=== PATIENT | female | born 1990 | race Caucasian/White ===

== ENCOUNTER 2016-12-29 18:40 | Inpatient (IN) | payer MEDICAID ==
[2016-12-29] MEDS ORDERED: Sodium Chloride 0.9% 10 ML Syringe FLUSH PRN (20:03)
--- NOTE | 2016-12-29 22:53 | PCM.LDHP ---
L&D History of Present Illness - General Date of Service: 12/29/16 Admit Problem/Dx: Admission Diagnosis/Problem Admission Diagnosis/Problem Source of Information: Patient History Limitations: Reports: No Limitations - History of Present Illness Introduction:: 26 year old here with rupture of membranes. - Related Data Allergies/Adverse Reactions: Allergies Allergy/AdvReac Type Severity Reaction Status Date / Time kiwi Allergy Airway Uncoded 12/29/16 20:28 Tightness Past Medical History HEENT History: Reports: Allergic Rhinitis Psychiatric History: Reports: Depression - Infectious Disease History Infectious Disease History: Reports: Hepatitis C Social & Family History - Family History Family Medical History: Noncontributory - Tobacco Use Smoking Status *Q: Current Every Day Smoker Years of Tobacco use: 8 Packs/Tins Daily: 0.5 - Caffeine Use Caffeine Use: Reports: Coffee, Soda Other Caffeine Use: 6 mountain dew per day, 1 coffee per day - Recreational Drug Use Recreational Drug Use: No H&P Review of Systems - Review of Systems: Review Of Systems: See Below General: Reports: No Symptoms HEENT: Reports: No Symptoms Pulmonary: Reports: No Symptoms Cardiovascular: Reports: No Symptoms Gastrointestinal: Reports: No Symptoms Genitourinary: Reports: No Symptoms Musculoskeletal: Reports: No Symptoms Skin: Reports: No Symptoms Psychiatric: Reports: No Symptoms Neurological: Reports: No Symptoms Hematologic/Lymphatic: Reports: No Symptoms Immunologic: Reports: No Symptoms L&D Exam - Exam Exam: See Below - Vital Signs Weight: 84.368 kg - OB Specific Contraction Intensity: Mild to Moderate Movement: Active Heart Tones: Present Presentation: Vertex - Alejo Score Alejo Score Cervix Position: Midposition Alejo Score Consistency: Medium Alejo Score Effacement: 31-50% Alejo Score Dilation: 3-4 cm Alejo Score 's Station: -2 Alejo Score Total: 6 - Exam General: Alert, Oriented HEENT: Conjunctiva Clear Neck: Supple Lungs: Clear to Auscultation Cardiovascular: Regular Rate, Regular Rhythm Abdomen: Soft Genitourinary: Normal external exam Back Exam: Normal Inspection, Full Range of Motion Extremities: Normal Inspection Skin: Warm, Dry, Intact Neurological: Cranial Nerves Intact, Reflexes Equal Bilateral Psychiatric: Alert, Normal Affect, Normal Mood - Patient Data Lab Results last 24 hrs: Laboratory Results - last 24 hr 12/29/16 12/29/16 Range/Units 20:37 20:37 WBC 20.47 H (3.98-10.04) K/mm3 RBC 4.63 (3.98-5.22) M/mm3 Hgb 12.8 (11.2-15.7) gm/L Hct 38.3 (34.1-44.9) % MCV 82.7 (79.4-94.8) fl MCH 27.6 (25.6-32.2) pg MCHC 33.4 (32.2-35.5) g/dl RDW Std Deviation 39.7 (36.4-46.3) fL Plt Count 390 H (182-369) K/mm3 MPV 9.5 (9.4-12.3) fl Blood Type O POSITIVE Gel Antibody Screen Negative Result Diagrams: 12/29/16 20:37 Problem List Initiated/Reviewed/Updated: Yes Orders Last 24hrs: Active Orders 24 hr Category Date Time Status Activity as Tolerated [RC] PFP Care 12/29/16 20:03 Active Communication Order [RC] ASDIRECTED Care 12/29/16 20:03 Active Heart Tones [RC] ASDIRECTED Care 12/29/16 20:04 Active Notify Provider [RC] PFP Care 12/29/16 20:03 Active Notify Provider [RC] PRN Care 12/29/16 20:03 Active Peripheral IV Care [RC] . DIRECTED Care 12/29/16 20:04 Active Vital Signs [RC] PER UNIT ROUTINE Care 12/29/16 20:03 Active Clear Liquid Diet [DIET] Diet 12/29/16 Breakfast Active Lactated Ringers [Ringers, Lactated] 1,000 ml Med 12/29/16 20:15 Active IV ASDIRECTED Sodium Chloride 0.9% [Saline Flush] Med 12/29/16 20:03 Active 10 ml FLUSH ASDIRECTED PRN Electronic Heart Tones Ext w TOCO [WOMSER] Oth 12/29/16 20:03 Ordered Routine Electronic Heart Tones Internal [WOMSER] Per Unit Oth 12/29/16 20:03 Ordered Routine Peripheral IV Insertion Adult [OM.PC] Routine Oth 12/29/16 20:03 Ordered Resuscitation Status Routine Resus Stat 12/29/16 20:03 Ordered Medication Orders Lactated Ringer's (Ringers, Lactated) 1,000 mls @ 100 mls/hr IV ASDIRECTED BARBIE Sodium Chloride (Saline Flush) 10 ml FLUSH ASDIRECTED PRN PRN Reason: Keep Vein Open Assessment/Plan Comment:: Term SROM. Admit. CBC. IVF. Type and screen Anticipate .
[2016-12-30] MEDS ORDERED: Oxytocin/Lactated Ringers 10 UNIT/1,000 ML BAG IV ONE (00:43)
[2016-12-30] MEDS ORDERED: Oxytocin/Lactated Ringers 10 UNIT/1,000 ML BAG IV SCH (00:45)
[2016-12-30] MEDS: Lactated Ringers 1,000 ML IV SCH ×4 (00:58→08:01)
[2016-12-30] MEDS ORDERED: fentaNYL 100 MCG/2 ML SDV EPIDUR PRN (03:20)
[2016-12-30] MEDS ORDERED: ePHEDrine 50 MG/ML SDV IVPUSH PRN ×2 (03:20→10:35)
[2016-12-30] MEDS ORDERED: diphenhydrAMINE 50 MG/ML SDV IVPUSH PRN ×3 (03:20→10:35)
[2016-12-30] MEDS ORDERED: Ondansetron 4 MG/2 ML SDV IVPUSH PRN ×2 (03:20→08:55)
[2016-12-30] MEDS ORDERED: Bupivacaine/fentaNYL/NS 100 ML Bag EPIDUR SCH (03:30)
--- NOTE | 2016-12-30 04:11 | PCM.PREANE ---
Preanesthetic Assessment - Procedure Proposed Procedure: Labor Epidural - Anesthesia/Transfusion/Family Hx Anesthesia History: Prior Anesthesia Without Reaction Family History of Anesthesia Reaction: No Transfusion History: No Prior Transfusion(s) - Review of Systems General: No Symptoms Pulmonary: Cough (smokers cough) Cardiovascular: No Symptoms Gastrointestinal: Other (GERD) Neurological: No Symptoms Other: Reports: None - Physical Assessment NPO Status Date: 12/30/16 NPO Status Time: 01:00 Height: 1.65 m Weight: 84.368 kg ASA Class: 2 Mental Status: Alert & Oriented x3 Airway Class: Mallampati = 2 Dentition: Reports: Normal Dentition Thyro-Mental Finger Breadths: 3 Mouth Opening Finger Breadths: 3 ROM/Head Extension: Full Lungs: Clear to auscultation, Normal respiratory effort Cardiovascular: Regular Rate, Regular Rhythm - Lab Values: Laboratory Last Values WBC 20.47 K/mm3 (3.98-10.04) H 12/29/16 20:37 RBC 4.63 M/mm3 (3.98-5.22) 12/29/16 20:37 Hgb 12.8 gm/L (11.2-15.7) 12/29/16 20:37 Hct 38.3 % (34.1-44.9) 12/29/16 20:37 MCV 82.7 fl (79.4-94.8) 12/29/16 20:37 MCH 27.6 pg (25.6-32.2) 12/29/16 20:37 MCHC 33.4 g/dl (32.2-35.5) 12/29/16 20:37 RDW Std Deviation 39.7 fL (36.4-46.3) 12/29/16 20:37 Plt Count 390 K/mm3 (182-369) H 12/29/16 20:37 MPV 9.5 fl (9.4-12.3) 12/29/16 20:37 Blood Type O POSITIVE 12/29/16 20:37 Gel Antibody Screen Negative 12/29/16 20:37 - Allergies Allergies/Adverse Reactions: Allergies Allergy/AdvReac Type Severity Reaction Status Date / Time kiwi Allergy Airway Uncoded 12/29/16 20:28 Tightness - Blood Blood Available: No Product(s) Available: None - Anesthesia Plan Pre-Op Medication Ordered: None - Acknowledgements Anesthesia Type Planned: Epidural Pt an Appropriate Candidate for the Planned Anesthesia: Yes Alternatives and Risks of Anesthesia Discussed w Pt/Guardian: Yes Pt/Guardian Understands and Agrees with Anesthesia Plan: Yes PreAnesthesia Questionnaire HEENT History: Reports: Allergic Rhinitis Psychiatric History: Reports: Depression - Infectious Disease History Infectious Disease History: Reports: Hepatitis C - SUBSTANCE USE Smoking Status *Q: Current Every Day Smoker (1ppd for 8years) Tobacco Use Within Last Twelve Months: Cigarettes Second Hand Smoke Exposure: No Recreational Drug Use History: No - CURRENT (IN HOUSE) MEDS Current Meds: Current Medications Diphenhydramine HCl (Benadryl) 25 mg IVPUSH Q6H PRN PRN Reason: Pruritis Ephedrine Sulfate (Ephedrine Sulfate) 5 mg IVPUSH ASDIRECTED PRN PRN Reason: Hypotension Fentanyl (Sublimaze) 100 mcg EPIDUR Q3H PRN PRN Reason: Pain Fentanyl/Bupivacaine HCl (Fentanyl/Bupivacaine/Ns 2 Mcg-0.125% 100 Ml) 100 ml EPIDUR ASDIRECTED [facility] Lactated Ringer's (Ringers, Lactated) 1,000 mls @ 100 mls/hr IV ASDIRECTED [facility] Last Admin: 12/30/16 03:07 Dose: 100 mls/hr Oxytocin/Lactated Ringer's (Pitocin In Lr 10 Units/1,000 Ml) 10 unit in 1,000 mls @ 12 mls/hr IV TITRATE BARBIE; 2 MUNITS/MIN PRN Reason: Protocol Last Admin: 12/30/16 00:59 Dose: 2 munits/min, 12 mls/hr Ondansetron HCl (Zofran) 4 mg IVPUSH ONETIME PRN PRN Reason: Nausea/Vomiting Sodium Chloride (Saline Flush) 10 ml FLUSH ASDIRECTED PRN PRN Reason: Keep Vein Open Discontinued Medications Oxytocin/Lactated Ringer's (Pitocin In Lr 10 Units/1,000 Ml) 10 unit in 1,000 mls @ 500 mls/hr IV ONETIME ONE PRN Reason: Protocol Stop: 12/30/16 02:42
[2016-12-30] MEDS ORDERED: Dextrose 5%-0.45% NaCl 1,000 ML ONE (07:37)
[2016-12-30] MEDS ORDERED: Bupivacaine 0.5% 30 ML SDV ONE (07:50)
[2016-12-30] MEDS ORDERED: Dextrose 5%-0.45% NaCl 1,000 ML IV SCH (08:00)
[2016-12-30] MEDS ORDERED: Metoclopramide 10 MG/2 ML SDV ONE (08:01)
[2016-12-30] MEDS ORDERED: Citric Acid/Sodium Citrate Solution 30 ML Cup ONE (08:01)
[2016-12-30] MEDS ORDERED: Citric Acid/Sodium Citrate Solution 30 ML Cup PO ONE (08:03)
[2016-12-30] MEDS ORDERED: Sodium Chloride 0.9% 10 ML Syringe FLUSH PRN (08:03)
[2016-12-30] MEDS ORDERED: Metoclopramide 10 MG/2 ML SDV IVPUSH ONE (08:03)
--- NOTE | 2016-12-30 08:07 | PCM.SN ---
- Free Text/Narrative Note: Patient with minimal contractions. Once pitocin initiated over night had some prolonged decelerations. Improved upon stopping pitocin but no contractions or cervical change Then restarted pitocin and deep decelerations to the 20s. Plan section.
[2016-12-30] MEDS ORDERED: ceFAZolin 1 GM Vial ONE (08:10)
[2016-12-30] MEDS ORDERED: Ondansetron 4 MG/2 ML SDV ONE (08:10)
[2016-12-30] MEDS ORDERED: Lidocaine 2% with EPINEPHrine 1:200,000 20 ML SDV ONE (08:10)
[2016-12-30] MEDS ORDERED: Sodium Bicarbonate 8.4% 50 MEQ/50 ML SDV ONE (08:10)
[2016-12-30] MEDS ORDERED: Oxytocin 10 Units/1 ML SDV ONE (08:10)
[2016-12-30] MEDS ORDERED: Morphine PF 10 MG/10 ML SDV ONE (08:10)
[2016-12-30] MEDS ORDERED: Lactated Ringers 1,000 ML IV SCH (08:15)
[2016-12-30] MEDS ORDERED: ePHEDrine/Normal Saline 25 MG/5 ML Syringe ONE (08:39)
[2016-12-30] MEDS ORDERED: Meperidine PF 50 MG/ML Syringe IVPUSH PRN (08:55)
[2016-12-30] MEDS ORDERED: Ketorolac 30 MG/ML SDV ONE (09:10)
--- NOTE | 2016-12-30 09:22 | PCM.OPNOTE ---
- General Post-Op/Procedure Note Date of Surgery/Procedure: 12/30/16 Operative Procedure(s): primary Findings: viable male, 8/9 APGARS, weight 6#8oz Pre Op Diagnosis: non reassuring heart tones Post-Op Diagnosis: Same Anesthesia Technique: Epidural Primary Surgeon: Annabel Beltre Prescription Clerk: Kadie Mitchell Fluid Replacement, Intraop: 1,200 Output, Urine Amount: 200 EBL in mLs: 800 Complications: None Condition: Good Free Text/Narrative:: The patient was taken to the operating room where epidural anesthesia was dosed to surgical levels without difficulty. The patient was prepped and draped in the usual sterile fashion in the dorsal supine position with a leftward tilt. A Pfannenstiel skin incision was made with the scalpel and carried through to the underlying layer of fascia. The fascia was incised in the midline and extended laterally using Ordoñez scissors. Ethan clamps were used to elevate the superior aspect of the fascial incision, which was elevated, and the underlying rectus muscles were dissected off bluntly and using Ordoñez scissors. Attention was then turned to the inferior aspect of the fascial incision, which in similar fashion was grasped with Ethan clamps, elevated, and the underlying rectus muscles were dissected off bluntly and using the ordoñez. The rectus muscles were dissected in the midline. The peritoneum was entered bluntly; this incision was extended superiorly and inferiorly with good visualization of the bladder. The bladder blade was inserted. The vesicouterine peritoneum was identified and entered sharply using Metzenbaum scissors. This incision was extended laterally and the bladder flap was created digitally. The bladder blade was reinserted. The lower uterine segment was incised in a transverse fashion using the scalpel and with digital traction. Clear fluid was noted. The was subsequently delivered by flexing the head to the incision. Body and shoulders followed without difficulty. The cord was clamped and cut. The infant was subsequently handed to the awaiting beta tester whose presence had been requested.. The placenta was delivered spontaneously intact with a three-vessel cord noted. The uterus was exteriorized and cleared of all clots and debris. The uterine incision was repaired in 2 non locking layers using 0 monocryl. Hemostasis was visualized. Hemostasis was visualized bilaterally. The uterus was returned to the abdomen. The uterine incision was reexamined and it was noted to be hemostatic. The pelvis was copiously irrigated. The fascia was closed with 1 PDS suture, and the skin was closed with 3-0 monocryl. Sponge, lap, and instrument counts were correct x2. The patient was stable at the completion of the procedure and was subsequently transferred to the recovery room in stable condition
--- NOTE | 2016-12-30 09:28 | PCM.POSTAN ---
POST ANESTHESIA ASSESSMENT - MENTAL STATUS Mental Status: alert, oriented - VITAL SIGNS Pulse Rate: 84 SaO2: 100 Resp Rate: 15 Blood Pressure: 104/65 Temperature: 36.0 C - RESPIRATORY Respiratory Status: respiratory rate WNL, airway patent, O2 saturation stable, supplemental oxygen - CARDIOVASCULAR CV Status: pulse rate WNL, blood pressure stable - GASTROINTESTINAL GI Status: no symptoms - PAIN Pain Score: 0 - POST OP HYDRATION Hydration Status: adequate & stable
[2016-12-30] MEDS ORDERED: fentaNYL 100 MCG/2 ML SDV ONE (09:51)
[2016-12-30] MEDS ORDERED: fentaNYL 100 MCG/2 ML SDV IVPUSH PRN (09:54)
[2016-12-30] MEDS ORDERED: Bupivacaine 0.25% 10 ML SDV ONE (10:28)
[2016-12-30] MEDS ORDERED: Docusate Sodium 100 MG Cap PO PRN (10:35)
[2016-12-30] MEDS ORDERED: Dextrose 5%-Lactated Ringers 1,000 ML IV SCH (10:35)
[2016-12-30] MEDS ORDERED: Lanolin 100% Cream 7 GM Tube TOP PRN (10:35)
[2016-12-30] MEDS ORDERED: Naloxone 0.4 MG/ML SDV IVPUSH PRN (10:35)
[2016-12-30] MEDS: Simethicone 80 MG Tab.Chew PO SCH ×4 (11:22→21:16)
[2016-12-30] MEDS: Acetaminophen/oxyCODONE 325-5 MG Tab PO PRN ×2 (11:22→18:18)
[2016-12-30] MEDS: Nicotine 21 MG/24 Hr Patch TRDERM SCH (13:03)
[2016-12-30] MEDS ORDERED: Ketorolac 30 MG/ML SDV IVPUSH SCH (14:00)
[2016-12-30] MEDS: Ketorolac 30 MG/ML SDV IVPUSH SCH ×2 (15:20→21:15)
[2016-12-30] MEDS: Dextrose 5%-0.45% NaCl 1,000 ML IV SCH (21:14)
[2016-12-31] MEDS: Dextrose 5%-0.45% NaCl 1,000 ML IV SCH (03:07)
[2016-12-31] MEDS: Ketorolac 30 MG/ML SDV IVPUSH SCH (03:09)
--- NOTE | 2016-12-31 07:59 | PCM.PNPP ---
- General Info Date of Service: 12/31/16 Functional Status: Reports: pain controlled - Review of Systems General: Reports: No Symptoms HEENT: Reports: no symptoms Pulmonary: Reports: no symptoms Cardiovascular: Reports: No Symptoms Gastrointestinal: Reports: No symptoms Genitourinary: Reports: no symptoms Musculoskeletal: Reports: no symptoms Skin: Reports: no symptoms Neurological: Reports: No Symptoms Psychiatric: Reports: no symptoms - General Info Date of Service: 12/31/16 - Patient Data Vital Signs - most recent: Last Vital Signs Temp 36.2 C 12/31/16 04:07 Pulse 82 12/31/16 04:07 Resp 16 12/31/16 06:55 BP 98/57 L 12/31/16 04:07 Pulse Ox 96 12/31/16 06:55 Weight - most recent: 84.368 kg I&O - last 24 hours: Intake & Output 12/30/16 12/31/16 12/31/16 22:59 06:59 14:59 Intake Total 1520 1100 Output Total 350 650 150 Balance 1170 450 -150 Lab Results - last 24 hrs: Laboratory Results - last 24 hr 12/31/16 Range/Units 05:50 WBC 16.59 H (3.98-10.04) K/mm3 RBC 3.44 L (3.98-5.22) M/mm3 Hgb 9.5 L (11.2-15.7) gm/L Hct 29.7 L (34.1-44.9) % MCV 86.3 (79.4-94.8) fl MCH 27.6 (25.6-32.2) pg MCHC 32.0 L (32.2-35.5) g/dl RDW Std Deviation 41.3 (36.4-46.3) fL Plt Count 310 (182-369) K/mm3 MPV 9.6 (9.4-12.3) fl Neut % (Auto) 72.5 H (34.0-71.1) % Lymph % (Auto) 16.9 L (19.3-51.7) % [place] % (Auto) 8.0 (4.7-12.5) % Eos % (Auto) 1.6 (0.7-5.8) Baso % (Auto) 0.1 (0.1-1.2) % Neut # (Auto) 12.01 H (1.56-6.13) K/mm3 Lymph # (Auto) 2.81 (1.18-3.74) K/mm3 Deuel # (Auto) 1.33 H (0.24-0.36) K/mm3 Eos # (Auto) 0.27 (0.04-0.36) K/mm3 Baso # (Auto) 0.02 (0.01-0.08) K/mm3 Manual Slide Review Normal smear Med Orders - Current: Current Medications Diphenhydramine HCl (Benadryl) 25 mg IVPUSH Q6H PRN PRN Reason: Itching or Nausea Docusate Sodium (Colace) 100 mg PO Q12H PRN PRN Reason: Constipation Emollient Ointment (Lansinoh Hpa) 0 gm TOP ASDIRECTED PRN PRN Reason: Sore Nipples Ephedrine Sulfate (Ephedrine Sulfate) 5 mg IVPUSH SEECOMMENT PRN PRN Reason: Other Fentanyl (Sublimaze) 100 mcg EPIDUR Q3H PRN PRN Reason: Pain Last Admin: 12/30/16 04:41 Dose: 100 mcg Fentanyl/Bupivacaine HCl (Fentanyl/Bupivacaine/Ns 2 Mcg-0.125% 100 Ml) 100 ml EPIDUR ASDIRECTED [facility] Last Admin: 12/30/16 04:42 Dose: 100 ml Dextrose/Sodium Chloride (Dextrose 5%-1/2 Ns) 1,000 mls @ 125 mls/hr IV ASDIRECTED [facility] Last Admin: 12/31/16 03:07 Dose: 125 mls/hr Ibuprofen (Motrin) 600 mg PO Q6H PRN PRN Reason: mild pain or fever Meperidine HCl (Demerol) 12.5 mg IVPUSH ONETIME PRN PRN Reason: Shivering Miscellaneous Information (Remove Patch) 1 ea TRDERM DAILY [facility] Naloxone HCl (Narcan) 0.1 mg IVPUSH SEECOMMENT PRN PRN Reason: Respiratory Depression Nicotine (Habitrol) 21 mg TRDERM DAILY [facility] Last Admin: 12/30/16 13:03 Dose: 21 mg Ondansetron HCl (Zofran) 4 mg IVPUSH ONETIME PRN PRN Reason: Nausea/Vomiting Oxycodone/Acetaminophen (Percocet 325-5 Mg) 2 tab PO Q6H PRN PRN Reason: Pain (moderate 4-6) Last Admin: 12/30/16 18:18 Dose: 2 tab Simethicone (Simethicone) 80 mg PO PCBED BARBIE Last Admin: 12/30/16 21:16 Dose: 80 mg Discontinued Medications Bupivacaine HCl (Marcaine 0.5%) Confirm Administered Dose 30 ml .ROUTE .STK-MED ONE Stop: 12/30/16 07:51 Last Admin: 12/30/16 08:38 Dose: 20 ml Cefazolin Sodium (Ancef) Confirm Administered Dose 2 gm .ROUTE .STK-MED ONE Stop: 12/30/16 08:11 Citric Acid/Sodium Citrate (Bicitra Solution) Confirm Administered Dose 30 ml .ROUTE .STK-MED ONE Stop: 12/30/16 08:02 Last Admin: 12/30/16 17:50 Dose: Not Given Citric Acid/Sodium Citrate (Bicitra Solution) 30 ml PO ONETIME ONE Stop: 12/30/16 08:04 Last Admin: 12/30/16 08:08 Dose: 30 ml Diphenhydramine HCl (Benadryl) 25 mg IVPUSH Q6H PRN PRN Reason: Pruritis Diphenhydramine HCl (Benadryl) 25 mg IVPUSH Q6H PRN PRN Reason: Pruritis Ephedrine Sulfate (Ephedrine Sulfate) 5 mg IVPUSH ASDIRECTED PRN PRN Reason: Hypotension Ephedrine Sulfate (Ephedrine In Ns) Confirm Administered Dose 25 mg .ROUTE .STK- MED ONE Stop: 12/30/16 08:40 Fentanyl (Sublimaze) 50 mcg IVPUSH Q5M PRN PRN Reason: Pain Stop: 12/30/16 10:10 Last Admin: 12/30/16 09:54 Dose: 50 mcg Fentanyl (Sublimaze) Confirm Administered Dose 100 mcg .ROUTE .STK-MED ONE Stop: 12/30/16 09:52 Last Admin: 12/30/16 15:18 Dose: Not Given Lactated Ringer's (Ringers, Lactated) 1,000 mls @ 100 mls/hr IV ASDIRECTED [facility]BIE Last Admin: 12/30/16 08:01 Dose: 100 mls/hr Oxytocin/Lactated Ringer's (Pitocin In Lr 10 Units/1,000 Ml) 10 unit in 1,000 mls @ 12 mls/hr IV TITRATE BARBIE; 2 MUNITS/MIN PRN Reason: Protocol Last Titration: 12/30/16 06:34 Dose: 2 munits/min, 12 mls/hr Oxytocin/Lactated Ringer's (Pitocin In Lr 10 Units/1,000 Ml) 10 unit in 1,000 mls @ 500 mls/hr IV ONETIME ONE PRN Reason: Protocol Stop: 12/30/16 02:42 Last Admin: 12/30/16 17:50 Dose: Not Given Dextrose/Sodium Chloride (Dextrose 5%-1/2 Ns) Confirm Administered Dose 1,000 mls @ as directed .ROUTE .STK-MED ONE Stop: 12/30/16 07:38 Last Admin: 12/30/16 17:51 Dose: Not Given Dextrose/Sodium Chloride (Dextrose 5%-1/2 Ns) 1,000 mls @ 150 mls/hr IV ASDIRECTED BARBIE Last Admin: 12/30/16 08:00 Dose: 999 mls/hr Lactated Ringer's (Ringers, Lactated) 1,000 mls @ 125 mls/hr IV ASDIRECTED BARBIE Dextrose/Lactated Ringer's (Dextrose 5%-Lactated Ringers) 1,000 mls @ 125 mls/ hr IV ASDIRECTED [facility] Stop: 12/30/16 18:34 Last Admin: 12/30/16 16:48 Dose: 125 mls/hr Ketorolac Tromethamine (Toradol) Confirm Administered Dose 30 mg .ROUTE .STK- MED ONE Stop: 12/30/16 09:11 Ketorolac Tromethamine (Toradol) 30 mg IVPUSH Q6H [facility] Stop: 12/31/16 02:01 Last Admin: 12/30/16 17:50 Dose: Not Given Ketorolac Tromethamine (Toradol) 30 mg IVPUSH Q6H [facility] Stop: 12/31/16 03:01 Last Admin: 12/31/16 03:09 Dose: 30 mg Lidocaine/Epinephrine (Xylocaine-Mpf 2%-Epi 1:200,000) Confirm Administered Dose 20 ml .ROUTE .STK-MED ONE Stop: 12/30/16 08:11 Metoclopramide HCl (Reglan) Confirm Administered Dose 10 mg .ROUTE .STK-MED ONE Stop: 12/30/16 08:02 Last Admin: 12/30/16 17:50 Dose: Not Given Metoclopramide HCl (Reglan) 10 mg IVPUSH ONETIME ONE Stop: 12/30/16 08:04 Last Admin: 12/30/16 08:10 Dose: 10 mg Morphine Sulfate (Duramorph Pf) Confirm Administered Dose 10 mg .ROUTE .STK-MED ONE Stop: 12/30/16 08:11 Ondansetron HCl (Zofran) 4 mg IVPUSH ONETIME PRN PRN Reason: Nausea/Vomiting Ondansetron HCl (Zofran) Confirm Administered Dose 4 mg .ROUTE .STK-MED ONE Stop: 12/30/16 08:11 Oxytocin (Pitocin) Confirm Administered Dose 10 unit .ROUTE .STK-MED ONE Stop: 12/30/16 08:11 Sodium Bicarbonate (Sodium Bicarbonate 8.4%) Confirm Administered Dose 50 meq .ROUTE .STK-MED ONE Stop: 12/30/16 08:11 Sodium Chloride (Saline Flush) 10 ml FLUSH ASDIRECTED PRN PRN Reason: Keep Vein Open Sodium Chloride (Saline Flush) 10 ml FLUSH ASDIRECTED PRN PRN Reason: Keep Vein Open - Interaction Infant Disposition, : at Bedside Support Person: Significant Other - Recovery Exam Fundal Tone: Firm Fundal Level: At Umbilicus Fundal Placement: Midline Lochia Amount: Scant Lochia Color: Rubra/Red Perineum Description: Intact, Minimal Bruising/Swelling Other Perinuem Description: 1 small clot passed Episiotomy/Laceration: None Bladder Status: Indwelling Catheter in Place Urinary Elimination: Incontinent - Exam General: alert, oriented HEENT: Pupils equal Neck: supple Lungs: Clear to auscultation, Normal respiratory effort Cardiovascular: Regular Rate, Regular Rhythm Abdomen: bowel sounds present, soft, no tenderness, no distension Extremities: no edema Skin: warm, dry, intact Wound/Incisions: healing well Neurological: no new focal deficit Psy/Mental Status: alert, normal affect, normal mood - Problem List Review Problem List Initiated/Reviewed/Updated: Yes - My Orders Last 24 Hours: My Active Orders 12/30/16 08:03 Communication Order [RC] ROUTINE Heart Tones [RC] PER UNIT ROUTINE 12/30/16 08:05 Peripheral IV Care [RC] . DIRECTED 12/30/16 10:35 Communication Order [RC] PER UNIT ROUTINE Communication Order [RC] PER UNIT ROUTINE Notify Provider Intake and Out [RC] ASDIRECTED Acetaminophen/oxyCODONE [Percocet 325-5 MG] 2 tab PO Q6H PRN Docusate Sodium [Colace] 100 mg PO Q12H PRN Lanolin [Lansinoh HPA] See Dose Instructions TOP ASDIRECTED PRN Naloxone [Narcan] 0.1 mg IVPUSH SEECOMMENT PRN Simethicone 80 mg PO PCBED diphenhydrAMINE [Benadryl] 25 mg IVPUSH Q6H PRN ePHEDrine [ePHEDrine Sulfate] 5 mg IVPUSH SEECOMMENT PRN Assess Lochia [WOMSER] Per Unit Routine Assess Uterine Involution [WOMSER] Per Unit Routine Medication Administration Instruction [OM.PC] Routine 12/30/16 12:45 Nicotine [Habitrol] 21 mg TRDERM DAILY 12/30/16 18:35 Dextrose 5%-0.45% NaCl [Dextrose 5%-1/2 NS] 1,000 ml IV ASDIRECTED 12/30/16 Lunch Regular Diet [DIET] 12/31/16 08:00 Ibuprofen [Motrin] 600 mg PO Q6H PRN 12/31/16 09:00 Remove Patch 1 ea TRDERM DAILY - Plan Plan:: POD1 Doing great. Routine care.
[2016-12-31] MEDS: Simethicone 80 MG Tab.Chew PO SCH ×4 (08:30→22:11)
[2016-12-31] MEDS: Acetaminophen/oxyCODONE 325-5 MG Tab PO PRN ×3 (08:30→22:11)
[2016-12-31] MEDS: Remove Patch*NICOTINE TRDERM SCH (10:53)
[2016-12-31] MEDS: Nicotine 21 MG/24 Hr Patch TRDERM SCH (10:53)
[2016-12-31] MEDS: Ibuprofen 600 MG Tab PO PRN ×2 (12:18→18:58)
[2016-12-31] MEDS ORDERED: Measles, Mumps & Rubella Vaccine 0.5 ML SDV SUBCUT ONE (17:10)
--- NOTE | 2016-12-31 17:55 | PCM48HPAN ---
Post Anesthesia Note - EVALUATION WITHIN 48HRS OF ANESTHETIC Vital Signs in Normal Range: Yes Patient Participated in Evaluation: Yes Respiratory Function Stable: Yes Airway Patent: Yes Cardiovascular Function Stable: Yes Hydration Status Stable: Yes Pain Control Satisfactory: Yes Nausea and Vomiting Control Satisfactory: Yes Mental Status Recovered: Yes
[2017-01-01] MEDS: Ibuprofen 600 MG Tab PO PRN ×2 (02:19→09:50)
[2017-01-01] MEDS: Acetaminophen/oxyCODONE 325-5 MG Tab PO PRN (05:47)
--- NOTE | 2017-01-01 07:23 | PCM.DCSUM1 ---
Discharge Summary - Hospital Course Brief History: Admitted in labor. for non reassuring monitoring. - Discharge Data Discharge Date: 01/01/17 Discharge Disposition: Home, Self-Care 01 Condition: Good - Patient Summary/Data Operative Procedure(s) Performed: primary - Patient Instructions Diet: Usual Diet as Tolerated Activity: No Strenuous Activities Activity, Other: pelvic rest Driving: Do Not Drive Showering/Bathing: May Shower Wound/Incision Care: Keep Operative Site/Wound Site Clean and Dry, Change Dressing Daily, Do NOT Change Dressing Notify Provider of: Fever, Increased Pain, Swelling and Redness, Drainage, Nausea and/or Vomiting - Discharge Plan Referrals: Annabel Beltre MD [Primary Care Provider] - (4 weeks) - Discharge Summary/Plan Comment DC Time >30 min.: No - General Info Date of Service: 01/01/17 Functional Status: Reports: pain controlled - Review of Systems General: Reports: No Symptoms HEENT: Reports: no symptoms Pulmonary: Reports: no symptoms Cardiovascular: Reports: No Symptoms Gastrointestinal: Reports: No symptoms Genitourinary: Reports: no symptoms Musculoskeletal: Reports: no symptoms Skin: Reports: no symptoms Neurological: Reports: No Symptoms Psychiatric: Reports: no symptoms - Patient Data Vitals - Most Recent: Last Vital Signs Temp 36.6 C 01/01/17 04:24 Pulse 71 01/01/17 04:24 Resp 17 01/01/17 04:24 BP 106/68 01/01/17 04:24 Pulse Ox 99 01/01/17 04:24 Weight - Most Recent: 84.368 kg I&O - Last 24 hours: Intake & Output 12/31/16 01/01/17 01/01/17 22:59 06:59 14:59 Intake Total 1080 Balance 1080 Med Orders - Current: Current Medications Diphenhydramine HCl (Benadryl) 25 mg IVPUSH Q6H PRN PRN Reason: Itching or Nausea Docusate Sodium (Colace) 100 mg PO Q12H PRN PRN Reason: Constipation Last Admin: 12/31/16 22:11 Dose: 100 mg Emollient Ointment (Lansinoh Hpa) 0 gm TOP ASDIRECTED PRN PRN Reason: Sore Nipples Ephedrine Sulfate (Ephedrine Sulfate) 5 mg IVPUSH SEECOMMENT PRN PRN Reason: Other Fentanyl (Sublimaze) 100 mcg EPIDUR Q3H PRN PRN Reason: Pain Last Admin: 12/30/16 04:41 Dose: 100 mcg Fentanyl/Bupivacaine HCl (Fentanyl/Bupivacaine/Ns 2 Mcg-0.125% 100 Ml) 100 ml EPIDUR ASDIRECTED [facility] Last Admin: 12/30/16 04:42 Dose: 100 ml Dextrose/Sodium Chloride (Dextrose 5%-1/2 Ns) 1,000 mls @ 125 mls/hr IV ASDIRECTED [facility] Last Admin: 12/31/16 03:07 Dose: 125 mls/hr Ibuprofen (Motrin) 600 mg PO Q6H PRN PRN Reason: mild pain or fever Last Admin: 01/01/17 02:19 Dose: 600 mg Meperidine HCl (Demerol) 12.5 mg IVPUSH ONETIME PRN PRN Reason: Shivering Miscellaneous Information (Remove Patch) 1 ea TRDERM DAILY [facility] Last Admin: 12/31/16 10:53 Dose: 1 ea Naloxone HCl (Narcan) 0.1 mg IVPUSH SEECOMMENT PRN PRN Reason: Respiratory Depression Nicotine (Habitrol) 21 mg TRDERM DAILY [facility] Last Admin: 12/31/16 10:53 Dose: 21 mg Ondansetron HCl (Zofran) 4 mg IVPUSH ONETIME PRN PRN Reason: Nausea/Vomiting Oxycodone/Acetaminophen (Percocet 325-5 Mg) 2 tab PO Q6H PRN PRN Reason: Pain (moderate 4-6) Last Admin: 01/01/17 05:47 Dose: 2 tab Simethicone (Simethicone) 80 mg PO PCBED [facility] Last Admin: 12/31/16 22:11 Dose: 80 mg Discontinued Medications Bupivacaine HCl (Marcaine 0.5%) Confirm Administered Dose 30 ml .ROUTE .STK-MED ONE Stop: 12/30/16 07:51 Last Admin: 12/30/16 08:38 Dose: 20 ml Cefazolin Sodium (Ancef) Confirm Administered Dose 2 gm .ROUTE .STK-MED ONE Stop: 12/30/16 08:11 Citric Acid/Sodium Citrate (Bicitra Solution) Confirm Administered Dose 30 ml .ROUTE .STK-MED ONE Stop: 12/30/16 08:02 Last Admin: 12/30/16 17:50 Dose: Not Given Citric Acid/Sodium Citrate (Bicitra Solution) 30 ml PO ONETIME ONE Stop: 12/30/16 08:04 Last Admin: 12/30/16 08:08 Dose: 30 ml Diphenhydramine HCl (Benadryl) 25 mg IVPUSH Q6H PRN PRN Reason: Pruritis Diphenhydramine HCl (Benadryl) 25 mg IVPUSH Q6H PRN PRN Reason: Pruritis Ephedrine Sulfate (Ephedrine Sulfate) 5 mg IVPUSH ASDIRECTED PRN PRN Reason: Hypotension Ephedrine Sulfate (Ephedrine In Ns) Confirm Administered Dose 25 mg .ROUTE .STK- MED ONE Stop: 12/30/16 08:40 Fentanyl (Sublimaze) 50 mcg IVPUSH Q5M PRN PRN Reason: Pain Stop: 12/30/16 10:10 Last Admin: 12/30/16 09:54 Dose: 50 mcg Fentanyl (Sublimaze) Confirm Administered Dose 100 mcg .ROUTE .STK-MED ONE Stop: 12/30/16 09:52 Last Admin: 12/30/16 15:18 Dose: Not Given Lactated Ringer's (Ringers, Lactated) 1,000 mls @ 100 mls/hr IV ASDIRECTED [facility] Last Admin: 12/30/16 08:01 Dose: 100 mls/hr Oxytocin/Lactated Ringer's (Pitocin In Lr 10 Units/1,000 Ml) 10 unit in 1,000 mls @ 12 mls/hr IV TITRATE BARBIE; 2 MUNITS/MIN PRN Reason: Protocol Last Titration: 12/30/16 06:34 Dose: 2 munits/min, 12 mls/hr Oxytocin/Lactated Ringer's (Pitocin In Lr 10 Units/1,000 Ml) 10 unit in 1,000 mls @ 500 mls/hr IV ONETIME ONE PRN Reason: Protocol Stop: 12/30/16 02:42 Last Admin: 12/30/16 17:50 Dose: Not Given Dextrose/Sodium Chloride (Dextrose 5%-1/2 Ns) Confirm Administered Dose 1,000 mls @ as directed .ROUTE .STK-MED ONE Stop: 12/30/16 07:38 Last Admin: 12/30/16 17:51 Dose: Not Given Dextrose/Sodium Chloride (Dextrose 5%-1/2 Ns) 1,000 mls @ 150 mls/hr IV ASDIRECTED [facility] Last Admin: 12/30/16 08:00 Dose: 999 mls/hr Lactated Ringer's (Ringers, Lactated) 1,000 mls @ 125 mls/hr IV ASDIRECTED [facility] Dextrose/Lactated Ringer's (Dextrose 5%-Lactated Ringers) 1,000 mls @ 125 mls/ hr IV ASDIRECTED [facility] Stop: 12/30/16 18:34 Last Admin: 12/30/16 16:48 Dose: 125 mls/hr Ketorolac Tromethamine (Toradol) Confirm Administered Dose 30 mg .ROUTE .STK- MED ONE Stop: 12/30/16 09:11 Ketorolac Tromethamine (Toradol) 30 mg IVPUSH Q6H [facility] Stop: 12/31/16 02:01 Last Admin: 12/30/16 17:50 Dose: Not Given Ketorolac Tromethamine (Toradol) 30 mg IVPUSH Q6H [facility] Stop: 12/31/16 03:01 Last Admin: 12/31/16 03:09 Dose: 30 mg Lidocaine/Epinephrine (Xylocaine-Mpf 2%-Epi 1:200,000) Confirm Administered Dose 20 ml .ROUTE .STK-MED ONE Stop: 12/30/16 08:11 Measles/Mumps/Rubella Vaccine Live (M-M-R Ii Vaccine) 0.5 ml SUBCUT .ONCE ONE Stop: 12/31/16 17:11 Last Admin: 12/31/16 17:20 Dose: 0.5 ml Metoclopramide HCl (Reglan) Confirm Administered Dose 10 mg .ROUTE .STK-MED ONE Stop: 12/30/16 08:02 Last Admin: 12/30/16 17:50 Dose: Not Given Metoclopramide HCl (Reglan) 10 mg IVPUSH ONETIME ONE Stop: 12/30/16 08:04 Last Admin: 12/30/16 08:10 Dose: 10 mg Morphine Sulfate (Duramorph Pf) Confirm Administered Dose 10 mg .ROUTE .STK-MED ONE Stop: 12/30/16 08:11 Ondansetron HCl (Zofran) 4 mg IVPUSH ONETIME PRN PRN Reason: Nausea/Vomiting Ondansetron HCl (Zofran) Confirm Administered Dose 4 mg .ROUTE .STK-MED ONE Stop: 12/30/16 08:11 Oxytocin (Pitocin) Confirm Administered Dose 10 unit .ROUTE .STK-MED ONE Stop: 12/30/16 08:11 Sodium Bicarbonate (Sodium Bicarbonate 8.4%) Confirm Administered Dose 50 meq .ROUTE .STK-MED ONE Stop: 12/30/16 08:11 Sodium Chloride (Saline Flush) 10 ml FLUSH ASDIRECTED PRN PRN Reason: Keep Vein Open Sodium Chloride (Saline Flush) 10 ml FLUSH ASDIRECTED PRN PRN Reason: Keep Vein Open - Exam General: Reports: alert, oriented HEENT: Reports: Pupils equal, Pupils reactive, EOMI, Mucous membr. moist/pink Neck: Reports: supple Lungs: Reports: Clear to auscultation, Normal respiratory effort Cardiovascular: Reports: Regular Rate, Regular Rhythm Abdomen: Reports: bowel sounds present, soft, no tenderness, no distension (Female) Exam: Normal External Exam, Normal Speculum Exam, Normal Bimanual Exam Back Exam: Reports: Normal Inspection, Full Range of Motion Extremities: Reports: no edema, normal pulses Skin: Reports: warm, dry, intact Wound/Incisions: Reports: healing well Neurological: Reports: no new focal deficit Psy/Mental Status: Reports: alert, normal affect, normal mood *Q Meaningful Use (DIS) - VTE *Q VTE Criteria *Q: - Stroke *Q Stroke Criteria *Q: - AMI *Q AMI Criteria *Q:
[2017-01-01] MEDS: Simethicone 80 MG Tab.Chew PO SCH (09:51)
[2017-01-01] MEDS: Nicotine 21 MG/24 Hr Patch TRDERM SCH (09:55)
[2017-01-01] MEDS: Remove Patch*NICOTINE TRDERM SCH (09:56)
[2017-01-01] MEDS ORDERED: Acetaminophen/oxyCODONE 325-5 MG Tab PO ONE (10:11)
[2017-01-01 10:24] VITALS: BP 107/65
== END 2017-01-01 10:28 | disposition home or self-care (01) | DRG 766 ==
LOC: JD.OB 18:40 → JD.OBCHECK 18:40 → JD.OB 20:20 → OBSVTOIN 12-30 08:42
PROVIDERS: ADMIT Obstetrics & Gynecology; ATTEND Obstetrics & Gynecology
PROC: 10D00Z1 Extraction of Products of Conception, Low, Open Approach (ICD-10-PCS; principal; 2016-12-30)
PROC: 00HU33Z Insertion of Infusion Device into Spinal Canal, Percutaneous Approach (ICD-10-PCS; 2016-12-30)
PROC: 3E0R3CZ (ICD-10-PCS; 2016-12-30)
PROC: 3E0234Z Introduction of Serum, Toxoid and Vaccine into Muscle, Percutaneous Approach (ICD-10-PCS; 2016-12-31)
DX: O99.334 Smoking (tobacco) complicating childbirth (principal); F17.210 Nicotine dependence, cigarettes, uncomplicated; Z3A.38 38 weeks gestation of pregnancy; Z37.0 Single live birth; Z23 Encounter for immunization
CPT/HCPCS: 01967; 01968; 36415; 85025; 85027; 86850; 86900; 86901; 90707; 94762; A9270-GY; J0690; J1885; J2270; J2405; J2590; J2765; J3010; J7042; J7050; J7120

== ENCOUNTER 2018-03-22 19:44 | Emergency (ER) | payer MEDICAID ==
[2018-03-22 20:42] VITALS: BP 127/81
[2018-03-22] MEDS ORDERED: Lidocaine 1% 10 ML MDV ONE (23:24)
--- NOTE | 2018-03-22 23:39 | EDM.PDOC ---
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 [No Known Home Meds] 03/22/18 [History] Past Medical History HEENT History: Reports: Allergic Rhinitis Musculoskeletal History: Reports: Other (See Below) Other Musculoskeletal History: left knee surgery three times Psychiatric History: Reports: Anxiety - Infectious Disease History Infectious Disease History: Reports: Hepatitis C Social & Family History - Family History Family Medical History: Noncontributory - Tobacco Use Smoking Status *Q: Current Every Day Smoker Years of Tobacco use: 9 Packs/Tins Daily: 0.5 - Caffeine Use Caffeine Use: Reports: Coffee, Soda Other Caffeine Use: 6 mountain dew per day, 1 coffee per day - Recreational Drug Use Recreational Drug Use: No ED ROS GENERAL - Review of Systems Review Of Systems: ROS reveals no pertinent complaints other than HPI. ED EXAM, SKIN/RASH Exam Limited By: No Limitations General Appearance: Alert, WD/WN, No Apparent Distress Ears: Normal External Exam, Normal Canal, Hearing Grossly Normal, Normal TMs Nose: Normal Inspection, Normal Mucosa, No Blood Throat/Mouth: Normal Inspection, Normal Lips, Normal Teeth, Normal Gums, Normal Oropharynx, Normal Voice, No Airway Compromise Head: Atraumatic, Normocephalic Neck: Normal Inspection, Supple, Non-Tender, Full Range of Motion Respiratory/Chest: No Respiratory Distress, Lungs Clear, Normal Breath Sounds, No Accessory Muscle Use, Chest Non-Tender Cardiovascular: Normal Peripheral Pulses, Regular Rate, Rhythm, No Edema, No Gallop, No JVD, No Murmur, No Rub GI/Abdominal: Normal Bowel Sounds, Soft, Non-Tender, No Organomegaly, No Distention, No Abnormal Bruit, No Mass (Female) Exam: Normal External Exam, Normal Speculum Exam, Normal Bimanual Exam Rectal (Female) Exam: Normal Exam, Normal Rectal Tone Back Exam: Normal Inspection, Full Range of Motion, NT Extremities: Normal Inspection, Normal Range of Motion, Non-Tender, No Pedal Edema, Normal Capillary Refill Neurological: Alert, Oriented, CN II-XII Intact, Normal Cognition, Normal Gait, Normal Reflexes, No Motor/Sensory Deficits Psychiatric: Normal Affect, Normal Mood Lymphatic: No Adenopathy Course - Vital Signs Last Recorded V/S: Last Vital Signs Temp 37.4 C 03/22/18 20:40 Pulse 106 H 03/22/18 20:40 Resp 20 03/22/18 20:40 BP 127/81 03/22/18 20:40 Pulse Ox 96 03/22/18 20:40 - Orders/Labs/Meds Orders: Active Orders 24 hr Category Date Time Status Elbow 2V Lt [CR] Stat Exams 03/22/18 21:59 Taken Meds: Medications Discontinued Medications Generic Name Dose Route Start Last Admin Trade Name Freq PRN Reason Stop Dose Admin Lidocaine HCl Confirm 03/22/18 23:24 Xylocaine 1% Administered 03/22/18 23:25 Dose 10 ml .ROUTE .STK-MED ONE Departure - Discharge Information Referrals: Rhianna Pollard NP [Primary Care Provider] - Forms: ED Department Discharge - My Orders Last 24 Hours: My Active Orders 03/22/18 21:59 Elbow 2V Lt [CR] Stat - Assessment/Plan Last 24 Hours: My Active Orders 03/22/18 21:59 Elbow 2V Lt [CR] Stat
[2018-03-22] MEDS ORDERED: Lidocaine 1% 10 ML MDV INJECT ONE (23:41)
--- NOTE | 2018-03-22 23:44 | EDM.PDOC ---
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 [No Known Home Meds] 03/22/18 [History] Past Medical History HEENT History: Reports: Allergic Rhinitis Musculoskeletal History: Reports: Other (See Below) Other Musculoskeletal History: left knee surgery three times Psychiatric History: Reports: Anxiety - Infectious Disease History Infectious Disease History: Reports: Hepatitis C Social & Family History - Family History Family Medical History: Noncontributory - Tobacco Use Smoking Status *Q: Current Every Day Smoker Years of Tobacco use: 9 Packs/Tins Daily: 0.5 - Caffeine Use Caffeine Use: Reports: Coffee, Soda Other Caffeine Use: 6 mountain dew per day, 1 coffee per day - Recreational Drug Use Recreational Drug Use: No Review of Systems - Review of Systems Review Of Systems: ROS reveals no pertinent complaints other than HPI. ED EXAM, GENERAL - Physical Exam Exam: See Below Course - Vital Signs Last Recorded V/S: Last Vital Signs Temp 37.4 C 03/22/18 20:40 Pulse 106 H 03/22/18 20:40 Resp 20 03/22/18 20:40 BP 127/81 03/22/18 20:40 Pulse Ox 96 03/22/18 20:40 - Orders/Labs/Meds Orders: Active Orders 24 hr Category Date Time Status Elbow 2V Lt [CR] Stat Exams 03/22/18 21:59 Taken Meds: Medications Discontinued Medications Generic Name Dose Route Start Last Admin Trade Name Freq PRN Reason Stop Dose Admin Lidocaine HCl Confirm 03/22/18 23:24 Xylocaine 1% Administered 03/22/18 23:25 Dose 10 ml .ROUTE .STK-MED ONE Departure - Departure Time of Disposition: 23:40 Disposition: Home, Self-Care 01 Clinical Impression: Laceration of left upper extremity Qualifiers: Encounter type: initial encounter Qualified Code(s): S41.112A - Laceration without foreign body of left upper arm, initial encounter - Discharge Information *PRESCRIPTION DRUG MONITORING PROGRAM REVIEWED*: Not Applicable *COPY OF PRESCRIPTION DRUG MONITORING REPORT IN PATIENT MARANDA: Not Applicable Instructions: Laceration Care, Adult Referrals: Rhianna Pollard NP [Primary Care Provider] - Forms: ED Department Discharge Additional Instructions: May remove dressing and bathe tomorrow, as discussed. Cover with large bandaid. Kayleen should be removed in 7-10 days - that can be done in the ED. Call or return if signs of infection appear - increasing redness, pus drainage, increasing pain, or fever. - My Orders Last 24 Hours: My Active Orders 03/22/18 21:59 Elbow 2V Lt [CR] Stat - Assessment/Plan Last 24 Hours: My Active Orders 03/22/18 21:59 Elbow 2V Lt [CR] Stat
--- NOTE | 2018-03-26 12:34 | CR ---
Left elbow: Two views of the left elbow were obtained. Comparison: No previous study. Joint spaces are preserved. No fracture or other bony abnormality is seen. Impression: 1. No abnormality is appreciated on two-view left elbow study. Diagnostic code #1
--- NOTE | 2018-03-26 13:57 | ER ---
REASON FOR ADMISSION: Laceration left elbow. HISTORY OF PRESENT ILLNESS: This 27-year-old woman is brought in by her father after she apparently tripped on a carpet and fell striking her left elbow on the floor, sustaining a laceration and some pain. Her last tetanus shot was 5 years ago. She has no numbness or weakness distally. REVIEW OF SYSTEMS: Pertinent positives and negatives as listed in the HPI. CURRENT MEDICATIONS: None. ALLERGIES: Kiwi fruit. PHYSICAL EXAMINATION: VITAL SIGNS: See EMR. EXTREMITIES: Left arm, she has some slight swelling on the lateral aspect of her left elbow area. Passive range of motion is normal. She has an L-shaped laceration measuring approximately 6 cm in length. It is just over the lateral condyle. Distally, she has no numbness on sensory examination. All of her motor strength distally is normal including wrist flexion, extension, abduction and adduction of fingers, opposition. Examination of the wound, there is no exposed underlying tendon or joint or bone. DIAGNOSTIC DATA: X-ray of her left elbow was negative for any fracture or dislocation. FURTHER EMERGENCY ROOM COURSE: The wound was cleansed with Chloraseptic soap and water. The area was painted with Betadine and local anesthesia with approximately 12 mL of 1% xylocaine was achieved. The skin edges were approximated with 6 karina. Satisfactory hemostasis was noted. Antibiotic ointment and an occlusive sterile dressing were applied. She was instructed that she may remove the dressing tomorrow and may bathe and shower, but to keep the area clean and dry, and to keep it covered with a large Band-Aid if possible. Symptoms and signs of infection were explained to her. If any questions or concerns crop up, she should give us a call. She will return to have the karina removed in 7 to 10 days time. All questions were answered. MMODAL /[id number]
== END 2018-03-22 23:43 | disposition home or self-care (01) ==
LOC: JD.ED 19:44
DX: S41.112A Laceration without foreign body of left upper arm, initial encounter (principal); F17.210 Nicotine dependence, cigarettes, uncomplicated; F41.9 Anxiety disorder, unspecified; Z91.018 Allergy to other foods; W01.198A Fall on same level from slipping, tripping and stumbling with subsequent striking against other object, initial encounter
CPT/HCPCS: 12002; 73070-26-LT; 73070-LT; 99283-25

== ENCOUNTER 2019-11-04 05:36 | Inpatient (IN) | payer MEDICAID ==
[~2019-11-04 05:36] MED LIST: Citric Acid/Sodium Citrate Solution 30 ML Cup PO ONE; Lactated Ringers 1,000 ML IV SCH; Metoclopramide 10 MG/2 ML SDV IVPUSH ONE; Oxytocin/Lactated Ringers 10 UNIT/1,000 ML BAG IV SCH; Sodium Chloride 0.9% 10 ML Syringe FLUSH PRN
[2019-11-04] MEDS: Bupivacaine 0.5% 30 ML SDV ONE ×2 (06:30→08:18)
[2019-11-04] MEDS ORDERED: ceFAZolin 2 GM in Premix Bag 1 BAG IV ONE (07:00)
[2019-11-04] MEDS ORDERED: Citric Acid/Sodium Citrate Solution 30 ML Cup ONE (07:12)
[2019-11-04] MEDS ORDERED: Metoclopramide 10 MG/2 ML SDV ONE (07:12)
--- NOTE | 2019-11-04 07:36 | PCM.PREANE ---
Preanesthetic Assessment - Anesthesia/Transfusion/Family Hx Anesthesia History: Prior Anesthesia Without Reaction Transfusion History: No Prior Transfusion(s) - Review of Systems General: No Symptoms Pulmonary: No Symptoms Cardiovascular: No Symptoms Gastrointestinal: No Symptoms Neurological: No Symptoms Other: Reports: None - Physical Assessment NPO Status Date: 11/03/19 NPO Status Time: 21:00 Vital Signs: Preoperative vitals 98/72, 87, 16 rr, 98%, T98 F Height: 1.65 m Weight: 92.533 kg ASA Class: 2 Dentition: Reports: Normal Dentition (permanent retainer lower) Thyro-Mental Finger Breadths: 3 Mouth Opening Finger Breadths: 3 ROM/Head Extension: Full Lungs: Clear to Auscultation, Normal Respiratory Effort Cardiovascular: Regular Rate, Regular Rhythm - Lab Values: Laboratory Last Values WBC 13.49 K/mm3 (3.98-10.04) H 11/04/19 06:00 RBC 4.46 M/mm3 (3.98-5.22) 11/04/19 06:00 Hgb 12.4 gm/dl (11.2-15.7) D 11/04/19 06:00 Hct 37.6 % (34.1-44.9) 11/04/19 06:00 MCV 84.3 fl (79.4-94.8) 11/04/19 06:00 MCH 27.8 pg (25.6-32.2) 11/04/19 06:00 MCHC 33.0 g/dl (32.2-35.5) 11/04/19 06:00 RDW Std Deviation 39.2 fL (36.4-46.3) 11/04/19 06:00 Plt Count 277 K/mm3 (182-369) 11/04/19 06:00 MPV 10.1 fl (9.4-12.3) 11/04/19 06:00 Neut % (Auto) 76.2 % (34.0-71.1) H 11/04/19 06:00 Lymph % (Auto) 13.5 % (19.3-51.7) L 11/04/19 06:00 Imperial % (Auto) 7.4 % (4.7-12.5) 11/04/19 06:00 Eos % (Auto) 1.5 (0.7-5.8) 11/04/19 06:00 Baso % (Auto) 0.1 % (0.1-1.2) 11/04/19 06:00 Neut # (Auto) 10.27 K/mm3 (1.56-6.13) H 11/04/19 06:00 Lymph # (Auto) 1.82 K/mm3 (1.18-3.74) 11/04/19 06:00 Imperial # (Auto) 1.00 K/mm3 (0.24-0.36) H 11/04/19 06:00 Eos # (Auto) 0.20 K/mm3 (0.04-0.36) 11/04/19 06:00 Baso # (Auto) 0.02 K/mm3 (0.01-0.08) 11/04/19 06:00 Manual Slide Review Normal smear 11/04/19 06:00 Urine Opiates Screen Negative (GANKNW=289) 11/04/19 06:00 Ur Buprenorphine Scrn Negative (CUTOFF=10) 11/04/19 06:00 Ur Oxycodone Screen Negative ([id number]=592) 11/04/19 06:00 Urine Methadone Screen Negative (GCXCOU=797) 11/04/19 06:00 Ur Propoxyphene Screen Negative (RCPGZA=178) 11/04/19 06:00 Ur Barbiturates Screen Negative (WTWNLJ=808) 11/04/19 06:00 Ur Tricyclics Screen Negative (NTYBFF=913) 11/04/19 06:00 Ur Phencyclidine Scrn Negative (CUTOFF=25) 11/04/19 06:00 Ur Amphetamine Screen Negative (ZDHBLJ=622) 11/04/19 06:00 U Methamphetamines Scrn Negative (FPRIKZ=974) 11/04/19 06:00 U Benzodiazepines Scrn Negative (FLLHYX=156) 11/04/19 06:00 U Cocaine Metab Screen Negative (HFXQYL=925) 11/04/19 06:00 U Marijuana (THC) Screen Presumptive positive (CUTOFF=50) H 11/04/19 06:00 - Allergies Allergies/Adverse Reactions: Allergies Allergy/AdvReac Type Severity Reaction Status Date / Time kiwi Allergy Airway Uncoded 12/29/16 20:28 Tightness - Acknowledgements Anesthesia Type Planned: Spinal Pt an Appropriate Candidate for the Planned Anesthesia: Yes Alternatives and Risks of Anesthesia Discussed w Pt/Guardian: Yes Pt/Guardian Understands and Agrees with Anesthesia Plan: Yes PreAnesthesia Questionnaire HEENT History: Reports: Allergic Rhinitis Respiratory History: Reports: Other (See Below) Other Respiratory History: coughing 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 light in color and healing. pinpoint round puncture to hand. - Infectious Disease History Infectious Disease History: Reports: Hepatitis C, Other (See Below) Other Infectious Disease History: HX of MRSA. [id number] - SUBSTANCE USE Smoking Status *Q: Current Every Day Smoker Tobacco Use Within Last Twelve Months: Vaping, Other (See Below) Recreational Drug Use History: Yes Recreational Drug Type: Reports: Marijuana/Hashish, Other (see below) - HOME MEDS Home Medications: Home Meds Vits #93/Iron Fum/FA [ Formula Tablet] 1 tab PO DAILY 11/04/19 [History] - CURRENT (IN HOUSE) MEDS Current Meds: Current Medications Lactated Ringer's (Ringers, Lactated) 1,000 mls @ 125 mls/hr IV ASDIRECTED [facility] Oxytocin/Lactated Ringer's (Pitocin In Lr 10 Units/1,000 Ml) 10 unit in 1,000 mls @ 100 mls/hr IV ASDIRECTED [facility]; Protocol Sodium Chloride (Saline Flush) 10 ml FLUSH ASDIRECTED PRN PRN Reason: Keep Vein Open Discontinued Medications Bupivacaine HCl (Marcaine 0.5%) Confirm Administered Dose 30 ml .ROUTE .STK-MED ONE Stop: 11/04/19 06:23 Last Admin: 11/04/19 06:30 Dose: 20 ml Citric Acid/Sodium Citrate (Bicitra Solution) 30 ml PO ONETIME ONE Stop: 11/04/19 01:55 Citric Acid/Sodium Citrate (Bicitra Solution) Confirm Administered Dose 30 ml .ROUTE .STK-MED ONE Stop: 11/04/19 07:13 Cefazolin Sodium/Dextrose 2 gm (/ Premix) 50 mls @ 100 mls/hr IV ONETIME ONE Stop: 11/04/19 07:29 Metoclopramide HCl (Reglan) 10 mg IVPUSH ONETIME ONE Stop: 11/04/19 01:55 Metoclopramide HCl (Reglan) Confirm Administered Dose 10 mg .ROUTE .[facility]-MED ONE Stop: 11/04/19 07:13
[2019-11-04] MEDS ORDERED: Morphine PF 1 MG/ML Amp ONE (07:45)
[2019-11-04] MEDS ORDERED: ceFAZolin 1 GM Vial ONE (07:45)
[2019-11-04] MEDS ORDERED: Oxytocin 10 Units/1 ML SDV ONE (07:45)
[2019-11-04] MEDS ORDERED: fentaNYL 100 MCG/2 ML SDV IVPUSH PRN (08:31)
[2019-11-04] MEDS ORDERED: diphenhydrAMINE 50 MG/ML SDV IVPUSH PRN ×2 (08:31→10:16)
[2019-11-04] MEDS ORDERED: Ondansetron 4 MG/2 ML SDV IVPUSH PRN (08:31)
[2019-11-04] MEDS ORDERED: Lactated Ringers 1,000 ML ONE (08:50)
[2019-11-04] MEDS ORDERED: Ketorolac 30 MG/ML SDV ONE (08:50)
--- NOTE | 2019-11-04 09:03 | PCM.OPNOTE ---
- General Post-Op/Procedure Note Date of Surgery/Procedure: 11/04/19 Operative Procedure(s): repeat Pre Op Diagnosis: prior Post-Op Diagnosis: Same Primary Surgeon: Annabel Beltre Mold Capper Helper: Lucy Cooper Output, Urine Amount: 150 EBL in mLs: 600 Complications: None Condition: Good Free Text/Narrative:: The patient was taken to the operating room where spinal anesthesia was dosed to surgical levels without difficulty. The patient was prepped and draped in the usual sterile fashion in the dorsal supine position with a leftward tilt. A Pfannenstiel skin incision was made with the scalpel and carried through to the underlying layer of fascia. The fascia was incised in the midline and extended laterally using Ordoñez scissors. Ethan clamps were used to elevate the superior aspect of the fascial incision, which was elevated, and the underlying rectus muscles were dissected off bluntly and using Ordoñez scissors. Attention was then turned to the inferior aspect of the fascial incision, which in similar fashion was grasped with Ethan clamps, elevated, and the underlying rectus muscles were dissected off bluntly and using the ordoñez. The rectus muscles were dissected in the midline. The peritoneum was entered bluntly; this incision was extended superiorly and inferiorly with good visualization of the bladder. The bladder blade was inserted. The vesicouterine peritoneum was identified and entered sharply using Metzenbaum scissors. This incision was extended laterally and the bladder flap was created digitally. The bladder blade was reinserted. The lower uterine segment was incised in a transverse fashion using the scalpel and with digital traction. Clear fluid was noted. The was subsequently delivered by flexing the head to the incision. Body and shoulders followed without difficulty. The cord was clamped and cut. The was subsequently handed to the awaiting feather mixer whose presence had been requested.. The placenta was delivered spontaneously intact with a three-vessel cord noted. The uterus was exteriorized and cleared of all clots and debris. The uterine incision was repaired in 2 layers using 0 monocryl. Hemostasis was visualized. Hemostasis was visualized bilaterally. The uterus was returned to the abdomen. The uterine incision was reexamined and it was noted to be hemostatic. The pelvis was copiously irrigated. The fascia was closed with 1 PDS suture, and the skin was closed with 3-0 monocryl. Sponge, lap, and instrument counts were correct x2. The patient was stable at the completion of the procedure and was subsequently transferred to the recovery room in stable condition.
--- NOTE | 2019-11-04 09:09 | PCM.POSTAN ---
POST ANESTHESIA ASSESSMENT - MENTAL STATUS Mental Status: Alert, Oriented - VITAL SIGNS Vital Signs: Last Vital Signs Temp 98.2 F 11/04/19 08:52 Pulse 68 11/04/19 08:52 Resp 17 11/04/19 08:52 BP 106/65 11/04/19 08:52 Pulse Ox 98 11/04/19 08:52 - RESPIRATORY Respiratory Status: Respiratory Rate WNL, Airway Patent, O2 Saturation Stable - CARDIOVASCULAR CV Status: Pulse Rate WNL, Blood Pressure Stable - GASTROINTESTINAL GI Status: No Symptoms - PAIN Pain Score: 0 (post SAB) - POST OP HYDRATION Hydration Status: Adequate & Stable
[2019-11-04] MEDS ORDERED: Ketorolac 30 MG/ML SDV IVPUSH SCH (10:16)
[2019-11-04] MEDS ORDERED: ePHEDrine 50 MG/ML SDV IVPUSH PRN (10:16)
[2019-11-04] MEDS ORDERED: Naloxone 0.4 MG/ML SDV IVPUSH PRN (10:16)
[2019-11-04] MEDS ORDERED: Dextrose 5%-Lactated Ringers 1,000 ML IV SCH (10:16)
[2019-11-04] MEDS: Ketorolac 30 MG/ML SDV IVPUSH SCH ×2 (15:36→20:42)
[2019-11-04] MEDS: Docusate Sodium 100 MG Cap PO PRN (20:46)
[2019-11-04] MEDS: Acetaminophen/oxyCODONE 325-5 MG Tab PO PRN (20:46)
[2019-11-05] MEDS: Ketorolac 30 MG/ML SDV IVPUSH SCH (03:44)
[2019-11-05] MEDS: Acetaminophen/oxyCODONE 325-5 MG Tab PO PRN ×4 (07:21→19:48)
[2019-11-05] MEDS: Docusate Sodium 100 MG Cap PO PRN (07:21)
--- NOTE | 2019-11-05 07:45 | PCM.PNPP ---
- General Info Date of Service: 11/05/19 Functional Status: Reports: Pain Controlled - Review of Systems General: Reports: No Symptoms HEENT: Reports: No Symptoms Pulmonary: Reports: No Symptoms Cardiovascular: Reports: No Symptoms Gastrointestinal: Reports: No Symptoms Genitourinary: Reports: No Symptoms Musculoskeletal: Reports: No Symptoms Skin: Reports: No Symptoms Neurological: Reports: No Symptoms Psychiatric: Reports: No Symptoms - Patient Data Vital Signs - Most Recent: Last Vital Signs Temp 36.7 C 11/05/19 00:00 Pulse 65 11/05/19 00:00 Resp 13 11/05/19 06:00 BP 94/66 11/05/19 00:00 Pulse Ox 100 11/05/19 06:00 Weight - Most Recent: 92.533 kg I&O - Last 24 Hours: Intake & Output 11/04/19 11/05/19 11/05/19 22:59 06:59 14:59 Intake Total 2090 Output Total 575 669 Balance 1515 -669 Lab Results - Last 24 Hours: Laboratory Results - last 24 hr 11/04/19 11/04/19 11/05/19 Range/Units 06:00 06:00 05:35 WBC 12.95 H (3.98-10.04) K/mm3 RBC 4.14 (3.98-5.22) M/mm3 Hgb 11.1 L (11.2-15.7) gm/dl Hct 35.5 (34.1-44.9) % MCV 85.7 (79.4-94.8) fl MCH 26.8 (25.6-32.2) pg MCHC 31.3 L (32.2-35.5) g/dl RDW Std Deviation 39.3 (36.4-46.3) fL Plt Count 231 (182-369) K/mm3 MPV 10.5 (9.4-12.3) fl Neut % (Auto) 73.3 H (34.0-71.1) % Lymph % (Auto) 15.7 L (19.3-51.7) % Haakon % (Auto) 8.4 (4.7-12.5) % Eos % (Auto) 1.5 (0.7-5.8) Baso % (Auto) 0.2 (0.1-1.2) % Neut # (Auto) 9.50 H (1.56-6.13) K/mm3 Lymph # (Auto) 2.03 (1.18-3.74) K/mm3 Haakon # (Auto) 1.09 H (0.24-0.36) K/mm3 Eos # (Auto) 0.19 (0.04-0.36) K/mm3 Baso # (Auto) 0.02 (0.01-0.08) K/mm3 Manual Slide Review Normal smear RPR Non-reactive (NONREACTIVE) Blood Type O POSITIVE Gel Antibody Screen Negative Med Orders - Current: Current Medications Diphenhydramine HCl (Benadryl) 25 mg IVPUSH Q6H PRN PRN Reason: Itching or Nausea Docusate Sodium (Colace) 100 mg PO Q12H PRN PRN Reason: Constipation Last Admin: 11/05/19 07:21 Dose: 100 mg Ephedrine Sulfate (Ephedrine Sulfate) 5 mg IVPUSH SEECOMMENT PRN PRN Reason: Other Ibuprofen (Motrin) 600 mg PO Q6H PRN PRN Reason: mild pain or fever Naloxone HCl (Narcan) 0.1 mg IVPUSH SEECOMMENT PRN PRN Reason: Respiratory Depression Oxycodone/Acetaminophen (Percocet 325-5 Mg) 2 tab PO Q4H PRN PRN Reason: Pain (severe 7-10) Oxycodone/Acetaminophen (Percocet 325-5 Mg) 1 tab PO Q4H PRN PRN Reason: Pain (moderate 4-6) Last Admin: 11/05/19 07:21 Dose: 1 tab Discontinued Medications Bupivacaine HCl (Marcaine 0.5%) Confirm Administered Dose 30 ml .ROUTE .STK-MED ONE Stop: 11/04/19 06:23 Last Admin: 11/04/19 08:18 Dose: 20 ml Cefazolin Sodium (Ancef) Confirm Administered Dose 2 gm .ROUTE .STK-MED ONE Stop: 11/04/19 07:46 Citric Acid/Sodium Citrate (Bicitra Solution) 30 ml PO ONETIME ONE Stop: 11/04/19 01:55 Last Admin: 11/04/19 07:48 Dose: 30 ml Citric Acid/Sodium Citrate (Bicitra Solution) Confirm Administered Dose 30 ml .ROUTE .STK-MED ONE Stop: 11/04/19 07:13 Last Admin: 11/04/19 07:49 Dose: Not Given Diphenhydramine HCl (Benadryl) 25 mg IVPUSH Q6H PRN PRN Reason: Pruritis Fentanyl (Sublimaze) 50 mcg IVPUSH Q5M PRN PRN Reason: Pain Cefazolin Sodium/Dextrose 2 gm (/ Premix) 50 mls @ 100 mls/hr IV ONETIME ONE Stop: 11/04/19 07:29 Last Admin: 11/04/19 12:52 Dose: Not Given Lactated Ringer's (Ringers, Lactated) 1,000 mls @ 125 mls/hr IV ASDIRECTED [facility] Last Admin: 11/04/19 07:30 Dose: 125 mls/hr Oxytocin/Lactated Ringer's (Pitocin In Lr 10 Units/1,000 Ml) 10 unit in 1,000 mls @ 100 mls/hr IV ASDIRECTED [facility]; Protocol Lactated Ringer's (Ringers, Lactated) Confirm Administered Dose 1,000 mls @ as directed .ROUTE .STK-MED ONE Stop: 11/04/19 08:51 Dextrose/Lactated Ringer's (Dextrose 5%-Lactated Ringers) 1,000 mls @ 125 mls/ hr IV ASDIRECTED [facility] Stop: 11/04/19 18:15 Last Admin: 11/04/19 12:13 Dose: 125 mls/hr Ketorolac Tromethamine (Toradol) Confirm Administered Dose 30 mg .ROUTE .STK- MED ONE Stop: 11/04/19 08:51 Ketorolac Tromethamine (Toradol) 30 mg IVPUSH Q6H [facility] Stop: 11/04/19 22:17 Last Admin: 11/04/19 12:52 Dose: Not Given Ketorolac Tromethamine (Toradol) 30 mg IVPUSH Q6H [facility] Stop: 11/05/19 03:01 Last Admin: 11/05/19 03:44 Dose: 30 mg Metoclopramide HCl (Reglan) 10 mg IVPUSH ONETIME ONE Stop: 11/04/19 01:55 Last Admin: 11/04/19 07:49 Dose: 10 mg Metoclopramide HCl (Reglan) Confirm Administered Dose 10 mg .ROUTE .STK-MED ONE Stop: 11/04/19 07:13 Last Admin: 11/04/19 07:49 Dose: Not Given Miscellaneous Medication (Phenylephrine 1 Mg/10 Ml-Ns) Confirm Administered Dose 1 mg IV .STK-MED ONE Stop: 11/04/19 08:34 Morphine Sulfate (Duramorph Pf) Confirm Administered Dose 1 mg .ROUTE .STK-MED ONE Stop: 11/04/19 07:46 Ondansetron HCl (Zofran) 4 mg IVPUSH ONETIME PRN PRN Reason: Nausea/Vomiting Oxytocin (Pitocin) Confirm Administered Dose 20 unit .ROUTE .STK-MED ONE Stop: 11/04/19 07:46 Sodium Chloride (Saline Flush) 10 ml FLUSH ASDIRECTED PRN PRN Reason: Keep Vein Open - Interaction Disposition, : [place] to Nursery Support Person: Significant Other - Recovery Exam Fundal Tone: Firm Fundal Level: 1 Fingerbreadths Below Umbilicus Fundal Placement: Midline Lochia Amount: Small Lochia Color: Rubra/Red Perineum Description: Intact, Minimal Bruising/Swelling Episiotomy/Laceration: None Bladder Status: Indwelling Catheter in Place Urinary Elimination: Indwelling Catheter - Exam General: Alert, Oriented HEENT: Pupils Equal Neck: Supple Lungs: Normal Respiratory Effort Cardiovascular: Regular Rate, Regular Rhythm GI/Abdominal Exam: Normal Bowel Sounds, Soft, Non-Tender, No Organomegaly, No Distention, No Abnormal Bruit, No Mass, Pelvis Stable Extremities: Normal Inspection, Normal Range of Motion, Non-Tender, No Pedal Edema, Normal Capillary Refill Skin: Warm, Dry, Intact Wound/Incisions: Healing Well, Dressing Dry and Intact Neurological: No New Focal Deficit Psy/Mental Status: Alert, Normal Affect, Normal Mood - Problem List Review Problem List Initiated/Reviewed/Updated: Yes - My Orders Last 24 Hours: My Active Orders 11/04/19 10:16 Communication Order [RC] PER UNIT ROUTINE Communication Order [RC] PER UNIT ROUTINE Notify Provider Intake and Out [RC] ASDIRECTED Vital Signs [RC] Q1HR Acetaminophen/oxyCODONE [Percocet 325-5 MG] 1 tab PO Q4H PRN Acetaminophen/oxyCODONE [Percocet 325-5 MG] 2 tab PO Q4H PRN Docusate Sodium [Colace] 100 mg PO Q12H PRN Naloxone [Narcan] 0.1 mg IVPUSH SEECOMMENT PRN diphenhydrAMINE [Benadryl] 25 mg IVPUSH Q6H PRN ePHEDrine [ePHEDrine sulfate] 5 mg IVPUSH SEECOMMENT PRN Assess Lochia [WOMSER] Per Unit Routine Assess Uterine Involution [WOMSER] Per Unit Routine Medication Administration Instruction [OM.PC] Routine 11/04/19 10:19 Consult to Case Management/Technology Officer [CONS] Routine 11/04/19 Lunch Regular Diet [DIET] 11/05/19 09:00 Ibuprofen [Motrin] 600 mg PO Q6H PRN - Assessment Assessment:: Term POD1 Doing great Likely discharge tomorrow
--- NOTE | 2019-11-05 08:09 | PCM48HPAN ---
Post Anesthesia Note - EVALUATION WITHIN 48HRS OF ANESTHETIC Vital Signs in Normal Range: Yes Patient Participated in Evaluation: Yes Respiratory Function Stable: Yes Airway Patent: Yes Cardiovascular Function Stable: Yes Hydration Status Stable: Yes Pain Control Satisfactory: Yes Nausea and Vomiting Control Satisfactory: Yes Mental Status Recovered: Yes Vital Signs: Last Vital Signs Temp 36.7 C 11/05/19 00:00 Pulse 65 11/05/19 00:00 Resp 13 11/05/19 06:00 BP 94/66 11/05/19 00:00 Pulse Ox 100 11/05/19 06:00 - COMMENTS/OBSERVATIONS Free Text/Narrative:: no anesthesia complications noted
[2019-11-05] MEDS: Ibuprofen 600 MG Tab PO PRN ×2 (11:09→16:49)
[2019-11-06] MEDS: Acetaminophen/oxyCODONE 325-5 MG Tab PO PRN ×3 (02:46→13:31)
[2019-11-06 10:01] VITALS: BP 101/66; PULSE 86
== END 2019-11-06 14:25 | disposition home or self-care (01) | DRG 788 ==
LOC: JD.OB 05:36
PROVIDERS: ADMIT Obstetrics & Gynecology; ATTEND Obstetrics & Gynecology
PROC: 10D00Z1 Extraction of Products of Conception, Low, Open Approach (ICD-10-PCS; principal; 2019-11-04)
DX: O34.211 Maternal care for low transverse scar from previous cesarean delivery (principal); Z37.0 Single live birth; Z3A.39 39 weeks gestation of pregnancy
CPT/HCPCS: 01961; 36415; 59025; 80306; 85025; 86592; 86850; 86900; 86901; 94762; A9270-GY; G0480; J0690; J1885; J2274; J2370; J2590; J2765; J3490; J7120; J7121